=== PATIENT | female | born 1970 | race Caucasian/White ===

== ENCOUNTER → 2021-01-17 | Outpatient (CLI) | payer OTHER ==
--- NOTE | 2021-01-17 17:53 | REPVR ---
PROCEDURE INFORMATION: Exam: MR Lumbar Spine Without Contrast. Exam date and time: 01/17/2021 4:59 PM Age: 50 years old Clinical indication: Low back pain; Patient HX: Lbp; Additional info: Radiculopathy TECHNIQUE: Imaging protocol: Multiplanar magnetic resonance images of the lumbar spine without contrast. COMPARISON: No relevant prior studies available. FINDINGS: Limitations: Patient motion particularly on the axial images which obscures detail. Vertebrae: Normal alignment. Spinal cord: Conus medullaris is normal appearance at the L1-L2 level. Discs/Spinal canal/Neural foramina: Degenerative facet arthropathy at the L4-L5 level causes mild spinal canal stenosis and mild neural foraminal narrowing as well as mild narrowing of the left neural foramen at the L5-S1 level. Soft tissues: Unremarkable. IMPRESSION: No evidence of neural compromise. There is degenerative facet arthropathy most prominent the L4-L5 and L5-S1 levels. There is no disc herniation or significant spinal canal stenosis or neural foraminal narrowing in the lumbar spine. Electronically signed by: Ami Badillo On 01/17/2021 17:52:46 PM
== END ==
LOC: M RAD 15:27
PROVIDERS: ATTEND Physician Assistant
DX: M54.16 Radiculopathy, lumbar region (principal)